=== PATIENT | female | born 1990 | race Caucasian/White ===

== ENCOUNTER 2020-01-03 10:37 | Emergency (ER) | payer OTHER, SELFPAY ==
[2020-01-03 10:38] VITALS: BP 134/94; PULSE 127; RESP 18; TEMP 36.5; O2SAT 99; BMI 22.7
--- NOTE | 2020-01-03 11:09 | EKG12_ITS ---
Test Reason : SEIZURE Blood Pressure : / mmHG Vent. Rate : 108 BPM Atrial Rate : 108 BPM P-R Int : 160 ms QRS Dur : 082 ms QT Int : 338 ms P-R-T Axes : 062 070 055 degrees QTc Int : 452 ms Sinus tachycardia Possible Left atrial enlargement Borderline ECG Confirmed by ALEISHA POPE, MERARY ([id number]), clinical editor IMANI ZIEGLER ([id number] on 01/06/2020 3:35:55 PM Referred By: SHARA Confirmed By:MERARY MORAES MD
--- NOTE | 2020-01-03 11:15 | ED.DCSUM_ITS ---
History of Present Illness Chief Complaint: Seizure Informant: Patient Onset: Today Context: Sudden Onset Narrative: Patient is a 29-year-old female with history of epilepsy presenting with a seizure. Patient is from [place] and was at speech competition at [email or web address]. Patient had generalized tonic-clonic seizure activity per report that lasted for about 30 seconds. The significant continues for couple minutes after that. Patient is not remember the event. She did not urinate on herself. She states her last seizure was a year and a half ago. She has a neurologist that she follows with at [facility]. She is on Lamictal 200 mg extended release twice a day. She did not take her medication this morning. She states she is otherwise been compliant with her medications. Her last seizure before that was about 5 years ago. Patient denies any complaints or increased stressors. He states he is otherwise been feeling well. Past Medical History - Allergies and Home Meds Allergies/Adverse Reactions: Allergies No Known Allergies Allergy (Verified 01/03/20 10:42) Past Medical History: - - Epilepsy Surgical History: noncontributory Smoking Status: Never smoker Alcohol: None Drugs: None Review of Systems General: Denies: Chills, Fever, Sweats Eyes: Denies: Visual changes - bilaterally, Diplopia ENT: Denies: Rhinorrhea, Sore throat Cardiovascular: Denies: Chest pain, Palpitations Respiratory: Denies: Dyspnea, Cough, Dyspnea on exertion Gastrointestinal: Denies: Abdominal pain, Nausea, Vomiting, Diarrhea, Melena, Hematochezia Genitourinary: Denies: Dysuria, Hematuria, Frequency Musculoskeletal: Denies: Back pain, Extremity Pain Skin: Denies: Rash, Wounds Neurological: Reports: - - Seizure activity. Denies: Headache, Weakness, Numbness Physical Exam Vital Signs/Narrative: Vital Signs Temp Pulse Resp BP Pulse Ox 01/03/20 10:38 97.7 F L 127 H 18 134/94 H 99 Inital Vital Signs reviewed: Yes General: Well nourished, Well developed, No Acute Distress Head: Normocephalic, Atraumatic Eyes: Perrl, EOMI, - - No nystagmus ENT: Moist mucous membranes, No rhinorrhea, TM's clear, - - Superficial abrasion to the right lateral tongue Neck: Supple, Nontender Cardiovascular: Regular rhythm, No murmurs, Tachycardia Respiratory: No distress, CTA bilaterally, Chest nontender Abdomen: Soft, Nontender, Nondistended, Normal bowel sounds Back: Nontender, Normal Inspection Extremities: Nontender, No edema Skin: Normal color, No rash Neurological: Alert, Oriented x3, Cranial nerves II-XII grossly intact, Normal Strength, Normal Sensation, - - Normal coordination. Negative for: Confused, Parasthesia, Weakness, Left side facial droop, Right side facial droop Psychological: Normal affect, Normal Mood Diagnostic/Tx/Re-eval - Rhythm Strip Rhythm Strip: Sinus Tach Rate: 108 Ectopy: None - EKG Initial EKG Interpretation: Sinus Tachycardia, - - Sinus tachycardia at a rate of 108 Normal axis Normal intervals Normal ST segments - Medical Decision Making Patient is evaluated for breakthrough seizure. She is not had further seizure activity in emergency room. She is slightly tachycardic and slightly hemoconcentrated. She is given IV fluids. She is not having any source of infection. She is not have any significant electrolyte abnormalities to cause of seizures such as hyponatremia or hypernatremia. She has a normal neurologic exam I do not think CT imaging is indicated. She does have a known seizure disorder. Patient be discharged home to follow-up with her neurologist next week. Her mother comes to be able to drive her back to [place]. Patient is counseled on seizure precautions. Patient is counseled on signs and symptoms requiring return to the emergency room. Patient verbalizes agreement and understand this plan. Patient discharged home in stable and improved condition. ED Disposition - Plan for ED Patient: Disposition: Home or Assisted Living Diagnosis: Breakthrough seizure Instructions: SEIZURE, Recurrent [Adult] Additional Instructions: It appears you had a breakthrough seizure today. Work-up is otherwise normal. At this time I think you are safe to follow-up with your neurologist. Please do not drive alone, swim or take baths until you are cleared by your neurologist. We will not make any medication changes today. Return the emergency room with any worsening symptoms.
[2020-01-03] MEDS: 0.9% Normal Saline 1,000 ML 1000 ML IV (11:25)
[2020-01-03 11:26] LABS: Absolute Lymphocyte Count 1.35 X10^3/uL (0.83-4.51); Absolute Neutrophil Count 6.8 X10^3/uL (2.0-7.7); Basophil# 0.04 X10^3/uL; Basophil% 0.5 % (0-1); Eosinophil# 0.04 X10^3/uL; Eosinophils% 0.5 % (0-5); Hematocrit 44.7 % (37-47); Hemoglobin 15.1 g/dL (12.0-15.0); Lymphocyte # 1.35 X10^3/ul (4.0); Lymphocyte % 15.4 % (19-41); Mean Corp Hgb Conc 33.8 g/dL (32-36); Mean Corpuscular Hgb 32.5 pg (27.0-32.0); Mean Corpuscular Volume 96.3 fL (81-99); Mean Platelet Vol. 9.9 fl (6.2-12.0); Monocyte# 0.52 X10^3/uL; Monocyte% 5.9 % (0-10); NRBC Flagged by Analyzer 0 % (0-5); Neutrophil # 6.77 X10^3/uL (2.7-7.7); Neutrophil % 77.4 % (47-70); Platelet Count 224 K/mm3 (150-450); RBC Distribution Width CV 12.2 % (11.6-14.6); RBC Distribution Width SD 42.6 fl (35.1-43.9); Red Blood Count 4.64 M/mm3 (4.2-5.4); White Blood Count 8.8 K/mm3 (4.4-11.0)
[2020-01-03 11:38] LABS: Anion Gap 4 (5-15); BUN 10 mg/dL (7-18); Calcium,Total 9.4 mg/dL (8.5-10.1); Chloride 108 mmol/L (98-107); Creatinine, Serum 0.77 mg/dL (0.55-1.02); EST Glomerular Filtration Rate 96 mL/min (>60); Est Glom Filt Rate - Afr Amer 116 mL/min (>60); Estimated Creatinine Clearance 94.77 ml/min; Glucose 83 mg/dL (74-106); Potassium 4.1 mmol/L (3.5-5.1); Sodium Level 141 mmol/L (136-145)
[2020-01-03 13:00] VITALS: BP 123/81; PULSE 99; RESP 15; O2SAT 98
[2020-01-03 13:10] LABS: Mucous, Urine 0 SEEN /hpf (<or=2+); White Blood Cells 0 SEEN /hpf (0-5)
[2020-01-03 13:11] LABS: Internal QC Validated? YES +Cl - CLEAR BKGD
[2020-01-03 13:12] LABS: Color, Urine Yellow (Yellow); Glucose, Dipstick Normal (Normal); Ketone-Dipstick Negative (Negative); Leukocyte Esterase-Dipstick Negative /ul (Negative); Nitrite-Dipstick Negative (Negative); Occult Blood-Urine Negative /ul (Negative); Protein-Dipstick Negative (Negative); Urine Bilirubin Dipstick Negative (Negative); Urine Clarity Clear (Clear); Urine Urobilinogen Normal (Normal)
[2020-01-03 13:14] LABS: Pregnancy, Urine Negative Negative
[2020-01-03 13:20] LABS: Bacteria RARE /hpf (None Seen); Red Blood Cells-Urine 0-5 SEEN /hpf (0-5); Squamous Epithelial Cells - UA 0-5 SEEN /hpf (5-10)
[2020-01-03 14:12] VITALS: BP 111/60; PULSE 104; RESP 18; O2SAT 99
== END 2020-01-03 14:13 | disposition home or self-care (01) ==
PROVIDERS: Emergency Provider Emergency Medicine
DX: G40.409 Other generalized epilepsy and epileptic syndromes, not intractable, without status epilepticus (principal); Z79.899 Other long term (current) drug therapy
CPT/HCPCS: 80048; 81001; 81025; 85025; 93005; 96360; 96361; 99285; J7030; A4216